=== PATIENT | male | born 1965 | race Hispanic/Latino ===

== ENCOUNTER 2017-04-09 02:41 | Emergency (ER) | payer BC ==
[~2017-04-09] VITALS: Ht 180.3 cm; Wt 140.6 kg
--- NOTE | 2017-04-09 04:01 | Diagnostic Imaging Report ---
EXAM: CHEST SINGLE (PORTABLE), AP 1 view INDICATION: Fell and hit head COMPARISON: None FINDINGS: LINES/TUBES: None LUNGS: No consolidations or edema. PLEURA: No effusions or pneumothorax. HEART AND MEDIASTINUM: Normal size and contour. BONES AND SOFT TISSUES: No acute findings. IMPRESSION: No acute thoracic abnormality. Signed by: Dr. Leeann Palma M.D. on 04/09/2017 3:58 AM
--- NOTE | 2017-04-09 04:41 | Diagnostic Imaging Report ---
EXAMINATION: Head CT without contrast. HISTORY:Trauma COMPARISON:None. TECHNIQUE: Multidetector axial images were obtained from the foramen magnum to the vertex without contrast. The images were reconstructed using brain and bone algorithms. Thin section brain images were reformatted into coronal and sagittal planes. Intravenous contrast: None IMAGE QUALITY: Acceptable. FINDINGS: Skull/scalp: Large left frontal scalp edema/hematoma. No radiopaque foreign body. No acute depressed or displaced calvarial fracture. Parenchyma: No abnormal density. No acute hemorrhage, mass or acute major vascular territorial infarct. Arteries: No density suggestive of thrombosis. Dural sinuses: No abnormal density suggestive of thrombosis. Ventricles: Mild compensated dilatation due to volume loss. Extra-axial spaces: No abnormal density. Brain volume: Mild generalized cerebral volume loss. Craniocervical junction: No mass, Chiari malformation, or basilar invagination. Sella: No mass. Paranasal/mastoid sinuses: Imaged portions unremarkable. IMPRESSION: 1. Large left frontal scalp edema/hematoma.No acute calvarial fracture. 2. No acute posttraumatic intracranial abnormality. Signed by: Dr. Shital Thakkar M.D. on 04/09/2017 4:38 AM
[2017-04-09 05:06] VITALS: BP 164/76
== END 2017-04-09 05:10 | disposition home or self-care (01) ==
LOC: ER 02:41
DX: S00.83XA Contusion of other part of head, initial encounter (principal); W01.198A Fall on same level from slipping, tripping and stumbling with subsequent striking against other object, initial encounter; Y92.008 Other place in unspecified non-institutional (private) residence as the place of occurrence of the external cause
CPT/HCPCS: 70450; 71045; 93005; 99283